=== PATIENT | female | born 1960 | race Caucasian/White ===

== ENCOUNTER 2022-03-22 13:54 | Emergency (ER) | payer OTHER ==
[~2022-03-22] VITALS: Ht 167.6 cm; Wt 74.8 kg
--- NOTE | 2022-03-22 13:55 | NUR ---
Patient seen by
--- NOTE | 2022-03-22 14:15 | NUR ---
Pt. requesting blisters to be protected with stockinets.
[2022-03-22] MEDS ORDERED: MUPI22OI2 TP (14:32)
--- NOTE | 2022-03-22 14:42 | NUR ---
DCD instructions given to pt. who verbalized understanding pt. left room ambulatory. AAOx4 steady gait.
== END 2022-03-22 14:47 | disposition home or self-care (01) ==
LOC: ER 13:54
DX: R23.8 Other skin changes (principal)
CPT/HCPCS: A4663

== ENCOUNTER 2022-05-17 15:44 | Emergency (ER) | payer OTHER ==
[~2022-05-17] VITALS: Ht 167.6 cm; Wt 72.6 kg
[~2022-05-17 15:44] MED LIST: MUPI22OI2 TP
[2022-05-17 17:04] LABS: HEMATOCRIT 32.7 % (31.2-41.9); MEAN CORPUSCULAR HEMOGLOBIN 31.1 uug (24.7-32.8); MEAN CORPUSCULAR VOLUME 90.9 fL (75.5-95.3); PLATELET COUNT (AUTO) 170 K/uL (179-408)
[2022-05-17 17:18] LABS: BILIRUBIN,DIRECT 0.1 mg/dL (0.0-0.2); BILIRUBIN,TOTAL 0.4 mg/dL (0.2-1.0); CREATININE 1.3 mg/dL (0.6-1.3); POTASSIUM 4.3 mmol/L (3.5-5.1); TOTAL PROTEIN, SERUM 6.6 g/dL (6.4-8.2)
[2022-05-17 17:46] LABS: *BILIRUBIN,URIN NEGATIVE (NEGATIVE); *BLOOD, URINE 3+ (NEGATIVE); *CLARITY,URINE CLEAR (CLEAR); *COLOR,URINE YELLOW (YELLOW); *KETONES,URINE NEGATIVE (NEGATIVE); *UROBILINOGEN,URINE 0.2 E.U./dl (NORMAL); LEUKOCYTE ESTERASE ,URINE 1+ (NEGATIVE); NITRITE, URINE NEGATIVE (NEGATIVE); UGLUCOSE NEGATIVE (NEGATIVE)
[2022-05-17 18:20] LABS: RBC,URINE 20-50 /HPF (0-3); SQUAMOUS EPITHELIAL CELL,UR FEW /HPF (NONE SEEN)
[2022-05-17 18:21] LABS: BACTERIA,URINE FEW /HPF (NONE SEEN)
[2022-05-17] MEDS ORDERED: CEPH500T PO (18:39)
--- NOTE | 2022-05-17 19:17 | NUR ---
Gave pt RX and d/c instructions, verbalized understanding.
== END 2022-05-17 19:20 | disposition home or self-care (01) ==
LOC: ER 15:44
DX: K92.2 Gastrointestinal hemorrhage, unspecified (principal); N39.0 Urinary tract infection, site not specified; Z88.2 Allergy status to sulfonamides
CPT/HCPCS: 36415; 85025; 85730; A4663

== ENCOUNTER 2022-11-22 11:39 | Emergency (ER) | payer OTHER ==
[~2022-11-22] VITALS: Ht 167.6 cm; Wt 72.6 kg
[~2022-11-22 11:39] MED LIST changes: +CEPH500T PO
--- NOTE | 2022-11-22 11:57 | NUR ---
PT IS IN ROOM #2A. DR HERNANDEZ EVALUATED THE PT.
[2022-11-22 12:05] LABS: HEMATOCRIT 33.3 % (31.2-41.9); MEAN CORPUSCULAR HEMOGLOBIN 31.2 uug (24.7-32.8); MEAN CORPUSCULAR VOLUME 89.6 fL (75.5-95.3); PLATELET COUNT (AUTO) 186 K/uL (179-408)
[2022-11-22 12:32] LABS: CARBON DIOXIDE 27 mmol/L (21-32); CHLORIDE 108 mmol/L (98-107); CREATININE 1.4 mg/dL (0.6-1.3); GLUCOSE 112 mg/dL (74-106); POTASSIUM 4.1 mmol/L (3.5-5.1); UREA NITROGEN, BLOOD 31 mg/dL (7-18)
--- NOTE | 2022-11-22 13:07 | NUR ---
PT WAS D/C'd TO HOME. D/C INSTRUCTIONS GIVEN TO THE PT BY DR HERNANDEZ.
[2022-11-22 13:09] VITALS: BP 131/72
== END 2022-11-22 13:31 | disposition home or self-care (01) ==
LOC: ER 11:39
DX: R07.89 Other chest pain (principal); Z88.2 Allergy status to sulfonamides; Z79.899 Other long term (current) drug therapy
CPT/HCPCS: 36415; 71045; 84484; 85025; 93005; A4663

== ENCOUNTER 2024-05-28 17:32 | Emergency (ER) | payer OTHER ==
[~2024-05-28] VITALS: Ht 167.6 cm; Wt 74.8 kg
[2024-05-28 18:01] LABS: *BILIRUBIN,URIN NEGATIVE (NEGATIVE); *BLOOD, URINE 3+ (NEGATIVE); *CLARITY,URINE CLEAR (CLEAR); *COLOR,URINE YELLOW (YELLOW); *KETONES,URINE NEGATIVE (NEGATIVE); *PROTEIN,URINE 1+ (NEGATIVE); *UROBILINOGEN,URINE 0.2 E.U./dl (NORMAL); LEUKOCYTE ESTERASE ,URINE TRACE (NEGATIVE); NITRITE, URINE NEGATIVE (NEGATIVE); UGLUCOSE NEGATIVE (NEGATIVE)
[2024-05-28] MEDS ORDERED: PHEN-704 PO (18:03)
[2024-05-28] MEDS ORDERED: CEPH500C2 PO (18:03)
[2024-05-28] MEDS ORDERED: IBUP-1955 PO (18:03)
[2024-05-28 18:12] LABS: WBC,URINE 0-3 /HPF (0-3)
[2024-05-28] MEDS ORDERED: IBUPROFEN 600 MG TABLET ONE (18:15)
[2024-05-28] MEDS ORDERED: CEphaleXIN 500 MG CAPSULE ONE (18:15)
[2024-05-28] MEDS: IBUPROFEN 600 MG TABLET PO ONE (18:17)
[2024-05-28] MEDS: CEphaleXIN 500 MG CAPSULE PO ONE (18:17)
[2024-05-28 18:21] VITALS: BP 127/88; TEMP 98.8; O2SAT 99
== END 2024-05-28 18:22 | disposition home or self-care (01) ==
LOC: ER 17:34
DX: N30.90 Cystitis, unspecified without hematuria (principal); Z87.440 Personal history of urinary (tract) infections; Z79.899 Other long term (current) drug therapy; Z88.2 Allergy status to sulfonamides
CPT/HCPCS: A4606; A4663